=== PATIENT | female | born 1995 | race Caucasian/White ===

== ENCOUNTER 2017-06-06 12:24 | Emergency (ER) | payer OTHER ==
[~2017-06-06] VITALS: Ht 160 cm; Wt 86.4 kg
[2017-06-06 12:44] VITALS: BP 133/86; PULSE 71; RESP 18; O2SAT 100
--- NOTE | 2017-06-06 13:15 | ED.REPORT ---
HPI- Female Date of Service Jun 06, 2017 ED Provider: Abilio Lacy DO Patient is a 22 year old female with a hx of PCOS who presents to the ED complaining of lower abdominal cramping onset today coinciding with the start of her menses. Associated symptoms include vomitingx1, diarrhea, bleeding a little heavier than normal, and a white milky vaginal discharge onset 3 weeks ago. She denies fevers, chills, hematochezia, hematemesis, or any other symptoms. She had an IUD taken out 2 months ago and preceded to have normal periods until today. Nursing Notes Stated Complaint: ABDOMINAL PAIN Chief Complaint: Female Abdominal Pain Nursing Notes Reviewed: Yes Allergies: Coded Allergies: No Known Allergies (Unverified , 06/06/17) Scheduled PRN Naproxen (Naproxen) 500 Mg Tab 500 MG PO BID PRN PRN For Pain General Time Seen by MD: 13:14 Chief Complaint Abdominal pain... Hx Obtained From: Patient Arrived By: Walk-in Sudden in Onset?: Yes Onset Occurred: 5 - 8 hours ago Symptom Duration: Since onset Location: : Abdomen lower Quality: Cramping Severity: Current: Moderate Severity: Maximum: Moderate Sexual History / Control: Reports Pt is sexually active Recent Healthcare: Recent doctor visit Similar Sx Previous: No Past Medical History Past Medical History PCOS Past Surgical History R knee surg Smoking History Never Smoker Social History Alcohol Use: "Social" Drug Use: Denies drug use Ambulatory Status Independent Review of Systems Constitutional: Denies: Chills, Fever GI: Reports: Abdominal pain, Diarrhea, Vomiting, Denies: Hematemesis, Hematochezia Female: Reports: Vaginal bleeding - abnl, Vaginal discharge Neurologic: Denies: Focal weakness Complete sys rev & neg: except as marked. Physical Exam Initial Vital Signs Vital Signs (First) Date Time Temp Pulse Resp B/P Pulse Ox O2 Delivery O2 Flow Rate FiO2 06/06/17 12:44 36.2 71 18 133/86 100 Room Air Initial VS: Reviewed, Vital signs normal Head / Eyes: Atraumatic, Normocephalic Neck: Supple, Full range of motion Respiratory: Breath sounds normal, Clear to auscultation, No respiratory distress Cardiovascular: Regular rate & rhythm, Heart sounds normal, Intact distal pulses Abdomen / GI: Soft, Non-tender Skin: Warm, Dry Neurologic: Alert, Oriented, Nonfocal Psychiatric: Mood/affect normal, Behavior normal, Normal thought content Female Genitourinary: Bike Mechanic present, Atraumatic, External genitalia NL, No cervical motion tend, Os closed, No adnexal mass, No adnexal tenderness, No lesions or rash Scant blood no active bleeding General/Constitutional: Awake, Alert, No acute distress Interpretation & Diagnostics Lab Results Interpretation Result Diagram: 06/06/17 1324 06/06/17 1324 Test 06/06/17 13:24 06/06/17 14:25 White Blood Count 9.8th/mm3 (3.8-10.1) Red Blood Count 4.80mil/mm3 (3.90-5.20) Hemoglobin 14.7g/dL (12.0-15.6) Hematocrit 41.5% (35.0-46.0) Mean Corpuscular Volume 86.5fL (81-100) Mean Corpuscular Hemoglobin 30.6pg (27.0-35.0) Mean Corpuscular Hemoglobin Concent 35.4% (32.0-37.0) Red Cell Distribution Width 12.0% (12.3-15.4) Platelet Count 269bil/L (150-400) Neutrophils (%) (Auto) 72.0% (40-74) Lymphocytes (%) (Auto) 17.6% (14-46) Monocytes (%) (Auto) 7.9% (4-12) Eosinophils (%) (Auto) 2.1% (0-5) Basophils (%) (Auto) 0.3% (0-3) Sodium Level 137mEq/L (134-144) Potassium Level 4.3mEq/L (3.5-5.2) Chloride Level 101mEq/L (97-108) Carbon Dioxide Level 22mmol/L (18-29) Blood Urea Nitrogen 14mg/dL (6-20) Creatinine 0.68mg/dL (0.57-1.00) Estimat Glomerular Filtration Rate 154mL/min (>59) Glucose Level 110mg/dL (60-99) Calcium Level 9.1mg/dL (8.5-10.1) Magnesium Level 1.8mg/dL (1.6-2.6) Total Bilirubin 0.3mg/dL (0.0-1.2) Aspartate Amino Transf (AST/SGOT) 20U/L (0-50) Alanine Aminotransferase (ALT/SGPT) 15U/L (0-32) Alkaline Phosphatase 117U/L (25-150) Total Protein 7.4g/dL (6.4-8.4) Albumin 4.2g/dL (3.4-5.0) Lipase 46U/L (13-60) Hold Urine Received (Received) Re-Eval/Medical Decision Med Decision/Clinical Course No evidence of PID or adnexal tenderness. Pain is significantly better after Toradol. Suspect this is dysmenorrhea. Will discharge with naproxen and recommend outpatient follow-up and return precautions. Re-Evaluation/Progress : Time of Eval: 15:23 Re-Evaluation/Progress Note: Discussed plan for discharge. Patient understands and agrees with plan. All questions addressed at this time. Counseled Regarding: Diagnosis, Lab results, Need for follow-up, When/why to return to ED Discharge & Departure Impression: Primary Impression: Dysmenorrhea Disposition: Home Discharge Condition All VS Reviewed: Yes Condition: Stable Patient Instructions: Dysmenorrhea (ED) Additional Instructions: Use naproxen for pain. Follow-up with your regular doctor as needed. Return to the ER as needed for high fever, severe uncontrolled pain, heavy vaginal bleeding or other concerns Scribe Attestation Portions of this note were transcribed by Kriss Flowers. I, Dr. Lacy personally performed the history, physical exam and medical decision-making; I reviewed and confirmed the accuracy of the information in the transcribed note. Signed: Pierre Carcamo, 06/06/17 Abilio Lacy DO Jun 06, 2017 13:15 KRISS FLOWERS Jun 06, 2017 14:21
[2017-06-06 13:30] LABS: BASOPHILS % (AUTO) 0.3 % (0-3); EOSINOPHILS % (AUTO) 2.1 % (0-5); MONOCYTES % (AUTO) 7.9 % (4-12); Mean Corpuscular Hemoglobin 30.6 pg (27.0-35.0); Mean Corpuscular Volume 86.5 fL (81-100); Platelet Count 269 bil/L (150-400)
[2017-06-06 13:56] LABS: Magnesium 1.8 mg/dL (1.6-2.6)
[2017-06-06] MEDS ORDERED: NPR500T PO (15:33)
[2017-06-06 15:51] VITALS: BP 108/65; PULSE 59; RESP 20; O2SAT 99
== END 2017-06-06 15:51 | disposition home or self-care (01) ==
LOC: SED 12:24
DX: N94.6 Dysmenorrhea, unspecified (principal)
CPT/HCPCS: 36415; 80053; 81025; 83690; 83735; 85025; 96372; 99284; J1885